=== PATIENT | female | born 1995 | race Caucasian/White ===

== ENCOUNTER → 2018-01-21 10:30 | Outpatient (CLI) | payer MEDICAID ==
[~2018-01-21 10:30] MED LIST: HYDROCODONE-APA1 TAB PO; IBUPROFEN600 MG PO; PRENATABS RX TA1 TAB PO
[2018-01-31 11:59] VITALS: BMI 27.1
== END | disposition home or self-care (01) ==
LOC: D.LDO 10:30
DX: O36.5930 Maternal care for other known or suspected poor fetal growth, third trimester, not applicable or unspecified (principal); Z3A.36 36 weeks gestation of pregnancy

== ENCOUNTER → 2018-01-24 07:43 | Outpatient (CLI) | payer SELFPAY ==
[2018-01-31 11:59] VITALS: BMI 27.1
== END | disposition home or self-care (01) ==
LOC: D.LDO 07:43
DX: O36.5930 Maternal care for other known or suspected poor fetal growth, third trimester, not applicable or unspecified (principal); Z3A.36 36 weeks gestation of pregnancy

== ENCOUNTER → 2018-01-27 11:23 | Outpatient (CLI) | payer SELFPAY ==
[2018-01-31 11:59] VITALS: BMI 27.1
== END | disposition home or self-care (01) ==
LOC: D.LDO 11:23
DX: O36.5930 Maternal care for other known or suspected poor fetal growth, third trimester, not applicable or unspecified (principal); Z3A.36 36 weeks gestation of pregnancy

== ENCOUNTER → 2018-01-28 17:59 | Outpatient (CLI) | payer SELFPAY ==
[2018-01-31 11:59] VITALS: BMI 27.1
== END | disposition home or self-care (01) ==
LOC: D.LDO 17:59
DX: O36.5930 Maternal care for other known or suspected poor fetal growth, third trimester, not applicable or unspecified (principal); Z3A.36 36 weeks gestation of pregnancy

== ENCOUNTER 2018-01-31 10:40 | Inpatient (IN) | payer MEDICAID ==
[~2018-01-31] VITALS: Ht 167.6 cm; Wt 76.2 kg
[~2018-01-31 10:40] MED LIST changes: -HYDROCODONE-APA1 TAB PO; -IBUPROFEN600 MG PO
[2018-01-31 11:59] VITALS: BP 116/64; Ht 167.6 cm; Wt 76.2 kg
[2018-01-31 13:21] LABS: HEMATOCRIT 35.8 % (36.0-48.0); HEMOGLOBIN 12.3 g/dL (12-16); MCH 30.6 pg (26.0-34.0); MCHC 34.4 g/dL (31.0-37.0); MCV 89.1 fL (80.0-100.0); MEAN PLATELET VOLUME 10.6 fL (7.4-10.4); RBC 4.02 10x6/uL (4.00-5.40); RDW 13.1 % (11.5-14.5); WBC 10.8 10x3/uL (4.8-10.8)
[2018-02-01] VITALS (11 sets, daily range): BP systolic 112–134; BP diastolic 69–77
[2018-02-01 07:30] LABS: RAPID PLASMA REAGIN Non Reactive (Non Reactive)
[2018-02-01 15:01] LABS: BASOPHILS 0 % (0-2); EOSINOPHILS 0.4 % (0-7); IMMATURE GRANULOCYTES 0.4 % (0-5); LYMPHOCYTES 15.7 % (15-50); MCH 30.3 pg (26.0-34.0); MCHC 34.3 g/dL (31.0-37.0); MCV 88.5 fL (80.0-100.0); MEAN PLATELET VOLUME 9.9 fL (7.4-10.4); MONOCYTES 7.7 % (2-11); NEUTROPHILS 75.8 % (40-80); RBC 3.23 10x6/uL (4.00-5.40); RDW 12.9 % (11.5-14.5); WBC 10.4 10x3/uL (4.8-10.8)
[2018-02-01 15:11] LABS: HEMATOCRIT 28.6 % (36.0-48.0); HEMOGLOBIN 9.8 g/dL (12-16); PLATELET COUNT 184 10x3/uL (130-400)
[2018-02-02 06:02] VITALS: BP 107/60
[2018-02-02 06:37] LABS: BASOPHILS 0.1 % (0-2); EOSINOPHILS 0.2 % (0-7); HEMATOCRIT 30.6 % (36.0-48.0); HEMOGLOBIN 10.3 g/dL (12-16); IMMATURE GRANULOCYTES 0.4 % (0-5); LYMPHOCYTES 14.9 % (15-50); MCH 30.1 pg (26.0-34.0); MCHC 33.7 g/dL (31.0-37.0); MCV 89.5 fL (80.0-100.0); MEAN PLATELET VOLUME 9.7 fL (7.4-10.4); MONOCYTES 9.1 % (2-11); NEUTROPHILS 75.3 % (40-80); PLATELET COUNT 188 10x3/uL (130-400); RBC 3.42 10x6/uL (4.00-5.40); RDW 13.2 % (11.5-14.5)
[2018-02-02 07:22] VITALS: BP 116/63
[2018-02-02 13:19] VITALS: BP 125/73
[2018-02-02 17:08] VITALS: BP 122/63
[2018-02-02 19:17] VITALS: BP 118/60
[2018-02-03 04:10] VITALS: BP 102/57
[2018-02-03 07:35] VITALS: BP 125/74
[2018-02-03] MEDS ORDERED: IBUPROFEN600 MG PO (14:11)
[2018-02-03] MEDS ORDERED: HYDROCODONE-APA1 TAB PO (14:11)
== END 2018-02-03 15:15 | disposition home or self-care (01) | DRG 765 ==
LOC: D.LDO 10:40 → D.LD 10:57
PROVIDERS: Obstetrics & Gynecology
PROC: 3E033VJ Introduction of Other Hormone into Peripheral Vein, Percutaneous Approach (ICD-10-PCS; 2018-02-01)
PROC: 10D00Z1 Extraction of Products of Conception, Low, Open Approach (ICD-10-PCS; principal; 2018-02-01 07:45)
DX: O76 Abnormality in fetal heart rate and rhythm complicating labor and delivery (principal); O41.03X0 Oligohydramnios, third trimester, not applicable or unspecified; O69.81X0 Labor and delivery complicated by cord around neck, without compression, not applicable or unspecified; O36.5930 Maternal care for other known or suspected poor fetal growth, third trimester, not applicable or unspecified; Z3A.37 37 weeks gestation of pregnancy; Z37.0 Single live birth

== ENCOUNTER 2020-08-20 05:09 | Inpatient (IN) | payer OTHER ==
[~2020-08-20] VITALS: Ht 167.6 cm; Wt 81.6 kg
[~2020-08-20 05:09] MED LIST changes: +HYDROCODONE-APA1 TAB PO; +IBUPROFEN600 MG PO
[2020-08-20 05:47] VITALS: BP 110/61; BMI 29.1
[2020-08-20 07:29] LABS: HEMATOCRIT 36.4 % (36.0-48.0); HEMOGLOBIN 11.9 g/dL (12-16); MCH 28.8 pg (26.0-34.0); MCHC 32.7 g/dL (31.0-37.0); MCV 88.1 fL (80.0-100.0); RBC 4.13 10x6/uL (4.00-5.40); RDW 13.5 % (11.5-14.5); WBC 9.1 10x3/uL (4.8-10.8)
[2020-08-20 07:35] LABS: UDS - AMPHET NEGATIVE QUAL (NEGATIVE); UDS - BARB NEGATIVE QUAL (NEGATIVE); UDS - BENZO NEGATIVE QUAL (NEGATIVE); UDS - COCAINE NEGATIVE QUAL (NEGATIVE); UDS - OPIATE NEGATIVE QUAL (NEGATIVE); UDS - PCP NEGATIVE QUAL (NEGATIVE); UDS - THC NEGATIVE QUAL (NEGATIVE)
[2020-08-20 07:49] LABS: BILIRUBIN NEGATIVE (NEGATIVE); KETONE NEGATIVE (NEGATIVE); NITRITE NEGATIVE (NEGATIVE)
[2020-08-20 07:51] LABS: BACTERIA MODERATE HPF (NONE SEEN)
[2020-08-20 10:35] VITALS: BP 99/57
--- NOTE | 2020-08-20 11:00 | NUR ---
PT RECEIVED FROM RECOVERY. VSS. PIV IN RIGHT HAND INFUSING LR WITH PIT AT 125 MLS/HR. CA[place]O DRAINING TO BEDSIDE DRAINAGE, 75 MLS YELLOW URINE. PT DENIES PAIN AT THIS TIME. ICE PACK APPLIED TO INCISION SITE. FF,MIDLINE 1U. SMALL AMOUNT RUBRA LOCHIA NOTED ON PERIPAD. RR EVEN AND UNLABORED, CLEAR IN ALL LOBES. BOWEL SOUNDS NORMOACTIVE IN ALL FOUR QUADRANTS, S1,S2 RR. CALL LIGHT WITHIN REACH PT DENIES NEEDS AT THIS TIME. ICE WATER PROVIDED.
--- NOTE | 2020-08-20 11:14 | NUR ---
VSS. FUNDUS FIRM, MIDLINE AND U2 WITH SMALL AMT RUBRA, 2 DIME SIZED CLOT EXPRESSED WITH MASSAGE. DENIES PAIN. UNABLE TO MOVE BLE AT THIS TIME. POC DISCUSSED WITH PT AND SPOUSE, BOTH VERBALIZE UNDERSTANDING AND DENY QUESTIONS. SCD'S ON BLE. ICE PACK TO LOWER TRANSVERSE ABD INCISION. BED IN LOW POSITION WITH SRUP X2. CALL LIGHT AND PHONE WITHIN REACH.
--- NOTE | 2020-08-20 12:12 | NUR ---
VSS. FF, MIDLINE AND U2 WITH SMALL AMT RUBRA LOCHIA, NO CLOTS NOTED. C/O ABD AND INCISIONAL DISCOMFORT 01/04. TORADOL GIVEN AND RN PATIENT SERVICES INITIATED. INSTRUCTED ON RN PATIENT SERVICES USE, VERBALIZES UNDERSTANDING. INCENTIVE SPIROMETER PROVIDED AND USED PER INSTRUCTION X10 WITH GOOD EFFORT. ICE WATER PROVIDED. IN NBN. SIGNIFICANT OTHER AT BEDSIDE, SUPPORTIVE AND ATTENTIVE TO PT NEEDS. SCDS ON BLE.
--- NOTE | 2020-08-20 12:54 | NUR ---
RESTING QUIELTY WITH EYES CLOSED, EASILY AROUSES TO VOICE. PAIN REASSESSMENT COMPLETED, 09/04. FF, MIDLINE AND U2 WITH SMALL AMT RUBRA LOCHIA, NO CLOTS NOTED. DENIES NEEDS.
--- NOTE | 2020-08-20 13:31 | NUR ---
RESTING QUIETLY WITH EYES CLOSED. RESP REGULAR AND UNLABORED, NO S/S OF DISTRESS NOTED. SIGNIFICANT OTHER RESTING QUIETLY ON COUCH AT BEDSIDE.
--- NOTE | 2020-08-20 14:04 | NUR ---
VSS. FF, MIDLINE AND U2, SMALL AMT RUBRA LOCHIA, NO CLOTS NOTED. PERICARE DONE, TOWELS, CHUX, AND PADS CHANGED. I&O DONE. PAIN 4/10 FOLLOWING FUNDAL CHECK, REPORTS RELIEF WITH MITER SAWYER BUTTON USE. INCENTIVE SPIROMETER DONE X10 WITH GOOD EFFORT. REINFORCED TEACHING ON SPLINTING. NEW ICE PACKS PROVIDED. POPSICLE, APPLE JUICE AND ICE WATER PROVIDED. REPOSITIONED WITH MIN ASSIST TO L SIDE. PILLOW BEHIND BACK. LOWER TRANSVERSE ABD INCISION DRSG CLEAN, DRY, AND INTACT. SCD'S ON BLE. SIGNIFICANT AT BEDSIDE, SUPPORTIVE AND ATTENTIVE.
[2020-08-20 14:16] LABS: BASOPHILS 0 % (0-2); EOSINOPHILS 0 % (0-7); HEMATOCRIT 30.6 % (36.0-48.0); HEMOGLOBIN 10.1 g/dL (12-16); IMMATURE GRANULOCYTES 0.6 % (0-5); LYMPHOCYTE ABS# 1.46 10x3/uL (1.18-3.74); LYMPHOCYTES 11.7 % (15-50); MCH 28.6 pg (26.0-34.0); MCV 86.7 fL (80.0-100.0); MEAN PLATELET VOLUME 9.9 fL (7.4-10.4); MONOCYTES 8.2 % (2-11); NEUTROPHIL ABS# 9.93 10x3/uL (1.56-6.13); NEUTROPHILS 79.5 % (40-80); PLATELET COUNT 237 10x3/uL (130-400); RBC 3.53 10x6/uL (4.00-5.40); RDW 13.5 % (11.5-14.5)
[2020-08-20 14:23] LABS: WBC 12.5 10x3/uL (4.8-10.8)
--- NOTE | 2020-08-20 16:49 | NUR ---
FF, MIDLINE AND U2 WITH SCANT RUBRA LOCHIA, NO CLOTS NOTED. PERICARE DONE, PADS CHANGED. DENIES NEEDS. SIGNIFICANT OTHER AT BEDSIDE, SUPPORTIVE AND ATTENTIVE TO PT AND NEEDS.
--- NOTE | 2020-08-20 17:16 | NUR ---
ATTEMPTING TO BREAST FEED . DENIES NEEDS AND PAIN AT THIS. BED IN LOW POSITION WITH SRUP X2. CALL LIGHT AND PHONE WITHIN REACH. WILL CONTINUE TO MONITOR.
--- NOTE | 2020-08-20 18:38 | NUR ---
VSS. FUNDUS FIRM, MIDLINE AND U2 WITH SMALL AMT RUBRA LOCHIA, NO CLOTS NOTED. PERICARE DONE. TOWELS, GOWN, AND CHUX CHANGED. I&O DONE. C/O ABD AND INCISIONAL DISCOMFORT, TORADOL GIVEN PER EMAR. REPORTS THAT CRAP SHOOTER IS HELPING CONTROL PAIN. REPOSITIONED SELF IN BED. SCD'S ON BLE. INCENTIVE SPIROMETER DONE X10 WITH GOOD EFFORT. DENIES NEEDS. ENCOURAGED PO FLUID INTAKE. CONCENTRATE TEA COLOR URINE EMPTIED FROM CAICEDO. BED IN LOW POSITION WITH SRUP X2.
--- NOTE | 2020-08-20 19:48 | NUR ---
RN TO PT BEDSIDE FOR ASSESSMENT. FUNDUS FIRM, MIDLINE, 1 BELOW, SCANT RUBRA LOCHIA NOTED, NO CLOTS SEEN, PT STATES PAIN IS 3/10 TO ABDOMEN, HOP WORKER BUTTON WITHIN REACH, PT DENIES ANY CURRENT NEEDS, BED IN LOWEST POSITION, SIDE RAILS UPX2, CALL LIGHT IN REACH.
[2020-08-20 21:06] VITALS: BP 109/58
--- NOTE | 2020-08-20 21:08 | NUR ---
RN TO PT BEDSIDE FOR ROUNDING, INFANT NURSING AT THIS TIME, VSS, PT STATES PAIN IS 2/10, SHE STATES "I JUST PRESSED THE BUTTON A FEW MINUTES AGO", PT DENIES ANY CURRENT NEEDS, 200ML OF URINE IN UROMETER.
[2020-08-20 23:54] VITALS: BP 108/57
--- NOTE | 2020-08-20 23:55 | NUR ---
RN TO PT BEDSIDE FOR ROUNDING, PT STATES "MY BLADDER FEELS LIKE IT IS FULL" CAIC[place]O CATHETER MANIPULATED AND FLUSHED, 300ML OF URINE RETURNED TO UROMETER. PT STATES "IT FEELS BETTER", VSS. PT STATES PAIN IS 3/10. PT DENIES ANY OTHER NEEDS AT THIS TIME, FUNDUS IS FIRM, MIDLINE, 2 BELOW, SCANT RUBRA LOCHIA, NO CLOTS. FOB AT BEDSIDE, NURSERY NURSE WITH AT BEDSIDE AT THIS TIME.
--- NOTE | 2020-08-21 02:59 | NUR ---
RN TO PT BEDSIDE FOR ASSISTANCE. RN DEMONSTRATED METHODS TO CRADDLE . DEMONSTRATED GOOD SUCK AND SWALLOW, GOOD PACE, INFANT WOULD FEED OFF AN ON DETACHING AFTER TWO OR THREE MINUTES, MOTHER IS CALM AND COOPERATIVE, CALMED PRIOR TO ATTEMPTING TO RELATCH. MOTHER VERBALIZES THAT SHE WILL GIVE BOTTLE ONLY AFTER SHE IS DONE WITH ATTEMPTS, IN ORDER TO PROMOTE MILK PRODUCTION. MOTHER STATES "I JUST DON'T WANT MY BABY TO BE HUNGRY", INFANT IS CURRENTLY LATCHED ON RIGHT BREAST, GOOD SUCK, SWALLOW, LATCHED CURRENTLY FOR 5 MINUTES. PT VERBALIZES UNDERSTANDING THAT IF SHE NEEDS ADDITIONAL HELP WITH TO NOTIFIY NURSE FOR ASSISTANCE.
--- NOTE | 2020-08-21 03:48 | NUR ---
RN TO PT BEDSIDE FOR [employer] SPECIALIST SYRINGE CHANGE, SYRINGE CHANGED, TORADOL 30MG IVP ADMINISTERED PER MD ORDER AT THIS TIME FOR PAIN OF 6/10 TO ABDOMINAL INCISION.
[2020-08-21 04:37] VITALS: BP 104/54
--- NOTE | 2020-08-21 04:39 | NUR ---
RN TO PT BEDSIDE FOR ROUNDING, VSS. PT DENIES ANY NEEDS, INFANT IS IN NURSERY AT THIS TIME. FOB ON COUCH ASLEEP.
--- NOTE | 2020-08-21 06:03 | NUR ---
RN TO PT BEDSIDE, PT IS SLEEPING AT THIS TIME, PT IS LEFT UNAWAKEN
[2020-08-21 07:15] LABS: RAPID PLASMA REAGIN Non Reactive (Non Reactive)
[2020-08-21 07:27] VITALS: BP 98/55
--- NOTE | 2020-08-21 07:27 | NUR ---
PT SITTIUP IN BED. A,A,OX4. VSS. SEE FULL ASSESSMENT PER FLOWSHEET. FF,U2 MIDLINE SMALL AMOUNT RUBRA LOCHIA NOTED. PERICARE DONE AND PADS CHANGED. CAICEDO CATHETER DRAINING TO BEDSIDE DRAINAGE, 350 MLS DARK YELLOW URINE. CATHETER BAG EMPTIED. TANKAGE GRINDER PUMP IN USE. PIT INFUSING AT 125 MLS/HR IN RT HAND. PIV PATENT, C/D/I. ICE WATER PROVIDED. PT DENIES NEEDS AT THIS TIME.
[2020-08-21 10:03] LABS: BASOPHILS 0.1 % (0-2); EOSINOPHILS 1.1 % (0-7); HEMATOCRIT 30.5 % (36.0-48.0); IMMATURE GRANULOCYTES 0.5 % (0-5); LYMPHOCYTE ABS# 1.26 10x3/uL (1.18-3.74); LYMPHOCYTES 15.3 % (15-50); MCH 28.5 pg (26.0-34.0); MCHC 32.8 g/dL (31.0-37.0); MCV 86.9 fL (80.0-100.0); MEAN PLATELET VOLUME 9.6 fL (7.4-10.4); MONOCYTES 8.1 % (2-11); NEUTROPHIL ABS# 6.17 10x3/uL (1.56-6.13); NEUTROPHILS 74.9 % (40-80); PLATELET COUNT 190 10x3/uL (130-400); RBC 3.51 10x6/uL (4.00-5.40); RDW 13.5 % (11.5-14.5)
[2020-08-21 10:04] LABS: WBC 8.2 10x3/uL (4.8-10.8)
--- NOTE | 2020-08-21 10:20 | NUR ---
PT REQUESTING TO GET OUT OF BED. DR ORNELAS NOTIFIED. ORDERS RECEIVED TO DC CAICEDO AND AMBULATE.
--- NOTE | 2020-08-21 10:55 | NUR ---
PT RESTING WITH EYES CLOSED. RESPIRATIONS UNLABORED. CALL LIGHT WITHIN REACH.
--- NOTE | 2020-08-21 11:20 | NUR ---
CAICEDO DC'D. 10 MLS OF FLUID REMOVED FROM CAICEDO BALLOON. CATHETER REMOVED, SLIGHT RESISTANCE MET. BALLOON NOTED TO BE INTACT TO QUARTER SIZE. PT DENIES DISCOMFORT WITH CAICEDO REMOVAL. SMALL AMOUNT BRIGHT RED BLEEDING NOTED WITH REMOVAL. WILL NOTIFY DR ORNELAS. WILL CONTINUE TO MONITOR.
--- NOTE | 2020-08-21 13:50 | NUR ---
PIV SALINE LOCKED IN RT HAND. PT DENIES NEEDS AT THIS TIME.
[2020-08-21 14:08] VITALS: Ht 167.6 cm; Wt 81.6 kg
--- NOTE | 2020-08-21 15:17 | NUR ---
PAIN MEDICATION ADMINISTERED PER EMAR. PT DENIES NEEDS AT THIS TIME.
--- NOTE | 2020-08-21 15:21 | NUR ---
PT UP TO BR THIRD TIME, RN DID NOT MEASURE BUT PT REPORTS HAT WAS FULL. FIRST VOID THIS AM, 200 MLS YELLOW URINE, SECOND TIME 700 MLS YELLOW URINE IN HAT
--- NOTE | 2020-08-21 17:33 | NUR ---
ICE WATER AND DIET COKE PROVIDED PER REQUEST. DR. FLEMING AT BEDSIDE DISCUSSING POC WITH PT. LOWER TRANSVERSE ABD INCISION DRSG REMOVED PER DR. FLEMING. INCISION WELL APPROXIMATED WITH [place] INTACT. DENIES ADDITIONAL NEEDS. SIGNIFICANT OTHER AT BEDSIDE, SUPPORTIVE AND ATTENTIVE TO PT AND INFANT NEEDS .
--- NOTE | 2020-08-21 18:36 | NUR ---
MEDICATION ADMINISTERED PER EMAR. PT HOLDING IN ARMS, BOTTLEFEEDING. PT DENIES NEEDS AT THIS TIME.
[2020-08-21 19:15] VITALS: BP 117/70
--- NOTE | 2020-08-21 19:15 | NUR ---
RN TO BEDSIDE. SHIFT ASSESSMENT COMPLETED. SEE FLOWSHEET. PT RATES PAIN 2/10 AND TOLERABLE. DENIES NEEDS AT THIS TIME. BED LOW, WHEELS LOCKED, CL AND PHONE WITHIN REACH. SIDE RAILS UP X2. WILL CONT TO MONITOR PRN.
--- NOTE | 2020-08-21 21:17 | NUR ---
ROOM CHECK. PT SITTING UP IN BED PUMPING. INFANT RESTING QUIETLY IN OPEN CRIB AT BEDSIDE. PT C/O GAS AND REQUESTING SOMETHING FOR THAT. NEW ORDERS RCVD FROM DR FLEMING FOR SIMETHICONE 80 MG AT BEDTIME AND WITH MEALS.
--- NOTE | 2020-08-21 22:27 | NUR ---
NORCO 10/325MG X1 TAB GIVE FOR PAIN RATED 4/10 AT THIS TIME. PT DENIES FURTHER NEEDS. WILL CONTINUE TO MONITOR PRN.
[2020-08-22 00:34] VITALS: BP 114/68
--- NOTE | 2020-08-22 00:34 | NUR ---
MOTRIN 600MG X1 TAB GIVEN FOR PAIN RATED 2/10 AT THIS TIME. ICE WATER PROVIDED PER REQUEST. PT DENIES FURTHER NEEDS.
--- NOTE | 2020-08-22 02:47 | NUR ---
ROOM CHECK. PT RESTING WITH EYES CLOSED, RESP EVEN AND UNLABORED. PT LEFT UNDISTURBED AT THIS TIME.
--- NOTE | 2020-08-22 05:16 | NUR ---
ROOM CHECK. PT RESTING WITH EYES CLOSED, SUPINE WITH HOB 35 DEGREES. RESP EVEN AND UNLABORED. PT LEFT UNDISTURBED AT THIS TIME.
--- NOTE | 2020-08-22 06:25 | NUR ---
PT CONTINUES TO REST WIHT EYES CLOSED, RESP EVEN AND UNLABORED. PT LEFT UNDISTURBED AT THIS TIME.
[2020-08-22 07:55] VITALS: BP 118/66
--- NOTE | 2020-08-22 07:55 | NUR ---
PT A,A,OX4. INFANT IN CRIB AT BEDSIDE. VSS. PIV IN LT HAND SALINE LOCKED. FF MIDLINE U2. INCISION ON LOWER TRANSVERSE ABDOMEN, [place], C/D/I. SEE FULL ASSESSMENT PER FLOWSHEET. ICE WATER PROVIDED. PT STATES PAIN IS 4/10. PAIN MEDICATION ADMINSITERED PER EMAR. CALL LIGHT WITHIN REACH. PT DENIES NEEDS AT THIS TIME.
--- NOTE | 2020-08-22 09:05 | NUR ---
NO FLU SHOT NOTED ON PNC OR WEBIZ, LAST TDAP PER WEBIZ 2017. DISCUSSED WITH PT, PT DECLINES BOTH VACCINES AT THIS TIME.
[2020-08-22] MEDS ORDERED: HYDROCODON-ACE1 EA10 PO (09:55)
[2020-08-22] MEDS ORDERED: IBUPROFEN600 MG PO (09:55)
--- NOTE | 2020-08-22 14:15 | NUR ---
DISCHARGE INSTRUCTIONS GIVEN TO PT AND SIG OTHER. SAFE SLEEP TEACHING FOR INFANT GIVEN. PT VERBALIZES UNDERSTANDING.
--- NOTE | 2020-08-22 15:15 | NUR ---
PT OFF THE UNIT VIA WHEELCHAIR WITH INFANT IN CARSEAT. PT STABLE AND DISCHARGED TO HOME.
--- NOTE | 2020-08-30 16:43 | OP ---
PATIENT NAME: REHANA RUSSELL MEDICAL RECORD: [id number] LOCATION:[id number] ADMISSION DATE:08/20/20 SURGEON: ROYA ORNELAS MD DATE OF OPERATION: 08/20/2020 PREOPERATIVE DIAGNOSES: 1. Term intrauterine at 39 weeks. 2. Intrauterine growth restriction. POSTOPERATIVE DIAGNOSES: 1. Term intrauterine at 39 weeks. 2. Intrauterine growth restriction. PROCEDURE: RLTCS. FINDINGS: Viable infant, Apgars 9,9. Placenta delivered manually, intact 2-vessel cord noted. Normal adnexa bilaterally. COMPLICATIONS: None apparent. DESCRIPTION OF PROCEDURE: The patient was taken to the operating room where regional anesthesia was achieved without any difficulty. The patient was then prepped and draped in normal sterile fashion in the dorsal supine position. SCDs were on and functioning normally. Following prep and drape, a repeat Pfannenstiel skin incision was made and extended downward to the underlying subcutaneous fat to the level of the fascia. The fascia was then incised with scalpel and extended bilaterally with _Metzenbaum___ scissors. The superior and inferior aspect of the fascial incision was then grasped with Nelsy clamps times 2, tented up and sharply dissected from the underlying rectus muscle using the Bovie cautery and the Alas scissors. Rectus muscles were then sharply in the midline. Using the Metzenbaums, the peritoneum was entered _sharply at the superior aspect of the incsion with the Metzenbaum scissors. A bladder flap was created by excising the anterior leaf of the broad ligament and a low transverse incision was made with the scalpel and extended via the Pelosi method. The vertex was delivered atraumatically followed by the body the infant was bulb suctioned upon delivery. The cord was clamped times 2, cut and the was handed to the nursery team. Cord was obtained for gases. Placenta was removed manually and intact. The uterus was exteriorized, cleared of all clots and debris and vigorously massaged until good uterine tone was noted. The uterine incision was repaired times 2 with good hemostasis noted. Posterior cul-de-sac was thoroughly irrigated and hemostasis was noted from the uterine incision. Counts were correct times 2 for needles, sponges, and instruments and the fascia was repaired with 0 looped PDS times 1. The patient tolerated the procedure well and was transported to recovery stable and without incident. TRANSINT:[id number] Voice Confirmation ID: [id number] DOCUMENT ID: [id number] OPERATIVE REPORT [id number] REHANA RUSSELL, ROYA Garza MD at 1643 CC: [id number] DICTATION DATE: 08/30/20 1048 SUGAR COATING HAND: 08/30/20 1206 DIS IN 08/22/20 [id number] [place] [address]
== END 2020-08-22 15:15 | disposition home or self-care (01) | DRG 788 ==
LOC: D.LD 05:09
PROVIDERS: ADMIT Obstetrics & Gynecology; ATTEND Obstetrics & Gynecology
PROC: 10D00Z1 Extraction of Products of Conception, Low, Open Approach (ICD-10-PCS; principal; 2020-08-20 08:30)
DX: O36.5930 Maternal care for other known or suspected poor fetal growth, third trimester, not applicable or unspecified (principal); Z3A.38 38 weeks gestation of pregnancy; Z37.0 Single live birth; O34.219 Maternal care for unspecified type scar from previous cesarean delivery; R87.620 Atypical squamous cells of undetermined significance on cytologic smear of vagina (ASC-US); O75.89 Other specified complications of labor and delivery